=== PATIENT | male | born 1945 | race Caucasian/White ===

== ENCOUNTER 2023-09-14 05:05 | Emergency (ER) | payer OTHER ==
[~2023-09-14] VITALS: Ht 180.3 cm; Wt 106.0 kg
[2023-09-14] MEDS ORDERED: ALLOPURINOL100 MG PO (05:28)
[2023-09-14] MEDS ORDERED: LOSARTAN POTASS25 MG PO (05:28)
[2023-09-14] MEDS ORDERED: AMLODIPINE BES2.5 MG PO (05:29)
[2023-09-14 05:46] VITALS: BP 165/92
== END 2023-09-14 05:47 | disposition home or self-care (01) ==
LOC: ED 05:05
DX: S00.12XA Contusion of left eyelid and periocular area, initial encounter (principal); Z88.0 Allergy status to penicillin; Z79.899 Other long term (current) drug therapy; X58.XXXA Exposure to other specified factors, initial encounter
CPT/HCPCS: 99283